=== PATIENT | male | born 1950 | race Caucasian/White ===

== ENCOUNTER 2022-11-26 08:47 | Day surgery (SDC) | payer OTHER ==
[~2022-11-26] VITALS: Ht 167.6 cm; Wt 100.0 kg
[~2022-11-26 08:47] MED LIST: ALBU90OI INH; DILT120 PO; LOSA50 PO; TIOT18 INH; XARELTO20 MG PO
--- NOTE | 2022-11-26 10:05 | NUR ---
11/26/22 1005 Winifred Hoffmann 1002 1 DROP OF TETRACAINE ADMINISTERED TO R EYE, 1003 PLEDGET PLACED IN R EYE
== END 2022-11-26 11:46 | disposition home or self-care (01) ==
LOC: ORSCSDS 08:47
PROVIDERS: Student in an Organized Health Care Education/Training Program
PROC: 08RJ3JZ Replacement of Right Lens with Synthetic Substitute, Percutaneous Approach (ICD-10-PCS; principal; 2022-11-26 10:30)
DX: H25.13 Age-related nuclear cataract, bilateral (principal); I10 Essential (primary) hypertension; I48.91 Unspecified atrial fibrillation; Z79.01 Long term (current) use of anticoagulants; Z79.899 Other long term (current) drug therapy
CPT/HCPCS: J2250; J3010; J7040; V2632

== ENCOUNTER 2022-12-17 07:20 | Day surgery (SDC) | payer OTHER ==
[~2022-12-17] VITALS: Ht 167.6 cm; Wt 98.2 kg
--- NOTE | 2022-12-17 07:59 | NUR ---
12/17/22 0759 Ifrah Kelley LEFT EYE AT 0754 PLEJULIANNAET LEFT EYE AT 0755
--- NOTE | 2022-12-17 09:34 | NUR ---
12/17/22 0934 Janelle Bowling PT'S PULSE FLUCTUATED FROM HIGH 30S TO LOW 90S. PT HAS A HISTORY OF ATRIAL FIB AND EXPERIENCED IT IN THE OR. PT IS ASYMPTOMATIC AND SAYS THAT THIS IS TYPICAL FOR HIM.
== END 2022-12-17 09:37 | disposition home or self-care (01) ==
LOC: ORSCSDS 07:20
PROVIDERS: Student in an Organized Health Care Education/Training Program
PROC: 08RK3JZ Replacement of Left Lens with Synthetic Substitute, Percutaneous Approach (ICD-10-PCS; principal; 2022-12-17 09:00)
DX: H25.12 Age-related nuclear cataract, left eye (principal); Z96.1 Presence of intraocular lens; I48.91 Unspecified atrial fibrillation; I10 Essential (primary) hypertension; R06.02 Shortness of breath; J45.909 Unspecified asthma, uncomplicated; Z79.01 Long term (current) use of anticoagulants; Z79.899 Other long term (current) drug therapy
CPT/HCPCS: J2250; J3010; J7040; V2632